=== PATIENT | female | born 1960 | race Caucasian/White ===

== ENCOUNTER 2016-04-13 07:03 | Emergency (ER) | payer OTHER ==
[2016-04-13 07:19] VITALS: BP 139/44
--- NOTE | 2016-04-13 07:53 | UC ---
Throat Pain/Nasal Cooper HPI - HPI Summary HPI Summary: URI symptoms for 2 or 3 days. Woke this AM with swollen uvula and more throat pain, hard to swallow and cough, did cough up some blood-streaked phlegm. No fever. Able to eat and drink. Sinus congestion. - History of Current Complaint Chief Complaint: UCRespiratory Stated Complaint: SORE THROAT Time Seen by Provider: 04/13/16 07:08 Hx Obtained From: Patient Onset/Duration: Gradual Onset, Lasting Days - 3 Severity: Mild Cough: Productive - occasional Associated Signs & Symptoms: Positive: Dysphagia, Sinus Discomfort, Nasal Discharge. Negative: Drooling, Wheezing, Hoarseness, Fever, Vomiting, Rash - Epiglottits Risk Factors Epiglottis Risk Factors: Negative - other than uvula swelling - Allergies/Home Medications Allergies/Adverse Reactions: Allergies Allergy/AdvReac Type Severity Reaction Status Date / Time No Known Allergies Allergy Verified 04/13/16 07:08 Home Medications: Home Medications Ascorbic Acid TAB* [Vitamin C TAB*] 500 mg PO DAILY 04/13/16 [History Confirmed 04/13/16] Aspirin TAB* 325 mg PO DAILY 04/13/16 [History Confirmed 04/13/16] Aspirin [Aspirin Adult Low Dose] 81 mg PO DAILY 04/13/16 [History Confirmed ] Capsicum (Cayenne) [Cayenne] 450 mg PO DAILY 04/13/16 [History Confirmed ] Echinacea [Echinacea Plus] 1 cap PO DAILY 04/13/16 [History Confirmed 04/13/16] Flaxseed (Linseed) [Flaxseed Oil] 1,000 mg PO DAILY 04/13/16 [History Confirmed 04/13/16] Garlic [Garlic Oil] 3 mg PO BID 04/13/16 [History Confirmed 04/13/16] Glipizide [Glipizide ER] 2.5 mg PO DAILY 04/13/16 [History Confirmed 04/13/16] Homeopathic Products [Leg Cramp Relief] 1 tab PO DAILY 04/13/16 [History Confirmed 04/13/16] Magnesium Chloride EC TAB* [Slow Mag EC TAB*] 64 mg PO DAILY 04/13/16 [History Confirmed 04/13/16] Melatonin 1 mg PO DAILY 04/13/16 [History Confirmed 04/13/16] Misc Natural Products [Dandelion Root] 520 mg PO DAILY 04/13/16 [History Confirmed 04/13/16] Muir-3 Fatty Acids (Nf) [Fish Oil (NF)] 1,000 mg PO BID 04/13/16 [History Confirmed 04/13/16] SitaGLIPtin (NF) [Januvia (NF)] 25 mg PO DAILY 04/13/16 [History Confirmed 04/13] Dharmesh's Wort ([place] Perf [[place] Wort] 1,000 mg PO DAILY 04/13/16 [ History Confirmed 04/13/16] [place] 1 cap PO DAILY 04/13/16 [History] PMH/Surg Hx/FS Hx/Imm Hx Endocrine History Of: Reports: Diabetes - non insulin dependent Denies: Thyroid Disease Cardiovascular History Of: Reports: Hypertension Denies: Cardiac Disorders Respiratory History Of: Denies: COPD, Asthma GI/ History Of: Denies: Ulcer Cancer History Of: Denies: Breast Cancer - Surgical History Surgical History: Yes Surgery Procedure, Year, and Place: SEBACEOUS CYST RT BREAST 08/1978 - Family History Known Family History: Positive: Hypertension, Diabetes - Social History Occupation: Employed Full-time - professor Alcohol Use: Occasionally Substance Use Type: None Smoking Status (MU): Never Smoked Tobacco - Immunization History Most Recent Influenza Vaccination: not this season Review of Systems Constitutional: Negative Skin: Negative Eyes: Negative ENT: Sore Throat, Nasal Discharge Respiratory: Cough Cardiovascular: Negative Gastrointestinal: Negative Genitourinary: Negative Motor: Negative Neurovascular: Negative Musculoskeletal: Negative Neurological: Negative Psychological: Negative All Other Systems Reviewed And Are Negative: Yes Physical Exam Triage Information Reviewed: Yes Appearance: Well-Appearing, No Pain Distress, Well-Nourished Vital Signs: Initial Vital Signs Temp 98.4 F 04/13/16 07:13 Pulse 90 04/13/16 07:13 Resp 18 04/13/16 07:13 BP 139/44 04/13/16 07:13 Pulse Ox 100 04/13/16 07:13 Vital Signs Reviewed: Yes Eye Exam: Normal ENT: Positive: Hearing grossly normal, Pharyngeal erythema - uvula mildly swollen with petechiae on it, Nasal congestion, TMs normal. Negative: Tonsillar swelling, Tonsillar exudate, Trismus, Muffled/hoarse voice Neck exam: Normal Neck: Positive: Supple Respiratory Exam: Normal Cardiovascular Exam: Normal Musculoskeletal Exam: Normal Neurological Exam: Normal Psychological Exam: Normal Skin Exam: Normal Throat Pain/Nasal Course/Dx - Differential Dx/Diagnosis Differential Diagnosis/HQI/PQRI: Epiglottitis, Pharyngitis, Tonsillitis, URI Provider Diagnoses: uvulitis Discharge - Discharge Plan Condition: Stable Disposition: HOME Prescriptions: predniSONE TAB* [Deltasone TAB*] 40 mg PO DAILY #6 tab Patient Education Materials: Uvulitis (ED) Referrals: Latha Das MD [Primary Care Provider] -
== END 2016-04-13 07:53 | disposition home or self-care (01) ==
LOC: UCCORT 07:03
DX: K12.2 Cellulitis and abscess of mouth (principal); E11.9 Type 2 diabetes mellitus without complications; Z79.84 Long term (current) use of oral hypoglycemic drugs; I10 Essential (primary) hypertension
CPT/HCPCS: 87651; 99212; G0463